=== PATIENT | female | born 1950 | race Hispanic/Latino ===

== ENCOUNTER 2019-05-07 08:52 | Emergency (ER) | payer OTHER, MEDICARE ==
--- OUTSIDE RECORDS SUMMARY | 2019-05-07 08:56 | XMS REPORT ---
:1950 [facility] [address] [place] [address] Dr. Marie [address] [place] [id number] Care Team Providers Name Role Phone JURGEN MORGAN Unavailable Unavailable BRENDA LI Unavailable Unavailable Problems This patient has no known problems. Allergies, Adverse Reactions, Alerts This patient has no known allergies or adverse reactions. Medications This patient has no known medications. Results Test Description Test Time Test Comments Text Results Atomic Results Result Comments MR CARDIAC, 2018-03-10 Reason for exam:->LV FINAL REPORT PATIENT ID: WITHOUT 07:45:00 dysfunction prior [id number] Cardiac MRI dated PCIDiscussed with 09 March 2018 INDICATION: Dr. Soriano to be This is a 67 year-old female done today. with known ischemic heart disease, post revascularisation presents for assessment, due to change in cardiac function. This study is performed in order to quantitate left ventricular function, and to determine myocardial viability and damage. In July 2017, patient have chest pain and ST elevation myocardial infarction. Subsequently, there is angiography was performed, and stage PCI was performed to the LAD and LCx territories. There is also lesion identified in the RCA territory. Scanning blood pressure was 113/57. Patient weighs 122 pounds, with height of 59 inches. Body surface area is approximately 1.52 sq m. TECHNIQUE: Kiana ACHIEVA MRI scanner. Morphologic and dynamic cine imaging were performed in multiple projections before and after contrast administration. Thereafter, gadolinium was administered, which was followed by viability/scar imaging. Finally, flow quantification sequences were performed to determine the degree of valvular dysfunction. Please refer to the contrast sheet scanned in the EPIC system for the amount and route of contrast given. FINDINGS: The chest wall and mediastinum appears unremarkable. The pericardium and pulmonary arteries appear normal; no pericardial effusion is seen in the central pulmonary artery is normal in calibre. Limited imaging through the lungs reveals no gross abnormalities. The cardiac chambers demonstrate normal atrioventricular and ventriculoarterial concordance, and systemic and pulmonary venous return. The thoracic aorta is normal in course, calibre, and contour. There is mild atherosclerosis identified in the descending thoracic aorta. There is no evidence of acute aortic pathology, such as dissection, intramural hematoma, or contained rupture. The left ventricle is normal in size, with moderate systolic dysfunction. The distal two third of the interventricular septum is severely hypokinetic/akinetic. The distal half of the anterior wall is severely hypokinetic. In the long axis orientation, the apex is slightly dyskinetic, involving the entire and infero-apex and erika-apex. Quantitative values are as follows: GCW=637 cc; ESV=95 cc; stroke volume=56 cc; and ejection fraction=37%. Calculated absolute cardiac output=2.6 liters/min. Absolute left ventricular mass=65 grams. By visual estimation, the right ventricle is normal in size and function. Cine imaging and flow quantification reveals mild mitral regurgitation with regurgitant fraction=21%. There is trace to mild tricuspid regurgitation is seen. There is also trace to mild aortic regurgitation. Viability/scar imaging reveals transmural scar in the entire apex. In addition, near transmural to transmural scar is identified in the distal two third of the interventricular septum supplied by the LAD territory, as well as the distal one third of the anterior wall, consistent with the wall motion abnormalities. Ventricular thrombus is not present. Flow curves suggest normal left and right atrial pressures. In the four-chamber orientation, left atrial prominence is identified. CONCLUSIONS: 1. The left ventricle is normal in size with overall moderate systolic dysfunction. Ejection fraction is quantified to be 37%. Segmental wall motion abnormality is as described above, involving the distal two third of the septum, the apex and distal one half the one third of the anterior wall. Quantitative left ventricular functional values are as described above. Viability/scar imaging reveals transmural scar in the entire apex, including the infero-apex. In addition, near transmural to transmural scar is identified in the distal two third of the interventricular septum supplied by the LAD territory, as well as the distal one third of the anterior wall, consistent with the wall motion abnormalities. The above territories are essentially nonviable. Remainder of the left ventricle, specifically, the basal one third of the territory supplied by the LAD, the inferior wall, as well the lateral wall of full-thickness, viable appearing myocardium. 2. Mild mitral regurgitation as well as trace to mild tricuspid regurgitation and aortic regurgitation. 3. Left atrial prominence. 4. Major findings were discussed with Dr. Morgan. Signed: Fahad Sorianoeport Verified Date/Time: 03/10/2018 07:45:11 Reading Location: [place] [address] Cardiology MRI TINE KINASE (CK), TOTAL AND MB 2018-03-10 04:34:00 Test Item Value Reference Range Comments CREATINE KINASE TOTAL (BEAKER) (test kjnt=641) 93 U/L 29-200 CREATINE KINASE-MB (BEAKER) (test uryw=289) 2.1 ng/mL 0.0-6.6 CREATINE KINASE-MB INDEX (BEAKER) (test zwwn=669) 2.3 % CK-MB Reference Range:<6.7 Normal6.7-10.0 Borderline>10.0 AbnormalTROPONIN [id number] 04:34:00 Test Item Value Reference Range Comments TROPONIN I (BEAKER) (test wflx=028) 0.01 ng/mL 0.00-0.03 Troponin I (TnI) levels must be interpreted in the context of the presenting symptoms and the clinical findings. Elevated TnI levels indicate myocardial damage, but are not specific for ischemic heart disease. Elevated TnI levels are seen in patients with other cardiac conditions (including myocarditis and congestive heart failure), and slight TnI elevations occur in patients with other conditions, including sepsis, renal failure, acidosis, acute neurological disease, and persistent tachyarrhythmia.[id number] 04:28:00 Test Item Value Reference Range Comments MAGNESIUM (BEAKER) (test pxbu=338) 2.5 mg/dL 1.6-2.6 BASIC METABOLIC [id number] 04:28:00 Test Item Value Reference Range Comments SODIUM (BEAKER) (test 136 meq/L 136-145 zxtm=061) POTASSIUM (BEAKER) (test 3.9 meq/L 3.5-5.1 lkum=925) CHLORIDE (BEAKER) (test 106 meq/L 98-107 lpje=662) CO2 (BEAKER) (test 20 meq/L 22-29 qttm=616) BLOOD UREA NITROGEN 14 mg/dL 7-21 (BEAKER) (test khnl=551) CREATININE (BEAKER) (test 0.91 mg/dL 0.57-1.25 yaej=506) GLUCOSE RANDOM (BEAKER) 75 mg/dL 70-105 (test ifak=737) CALCIUM (BEAKER) (test 9.3 mg/dL 8.4-10.2 pvzk=687) EGFR (BEAKER) (test 61 mL/min/1.73 sq m ESTIMATED GFR IS NOT qdmu=9719) ACCURATE CREATININE CLEARANCE IN PREDICTING GLOMERULAR FILTRATION RATE. ESTIMATED GFR IS NOT APPLICABLE FOR DIALYSIS PATIENTS. CBC (HEMOGRAM ONLY)2018-03-10 04:07:00 Test Item Value Reference Range Comments WHITE BLOOD CELL COUNT (BEAKER) (test gtng=360) 7.7 K/ L 3.5-10.5 RED BLOOD CELL COUNT (BEAKER) (test yoyb=562) 4.40 M/ L 3.93-5.22 HEMOGLOBIN (BEAKER) (test effh=381) 12.2 GM/DL 11.2-15.7 HEMATOCRIT (BEAKER) (test vscz=442) 39.4 % 34.1-44.9 MEAN CORPUSCULAR VOLUME (BEAKER) (test bgqv=911) 89.5 fL 79.4-94.8 MEAN CORPUSCULAR HEMOGLOBIN (BEAKER) (test 27.7 pg 25.6-32.2 zbrp=517) MEAN CORPUSCULAR HEMOGLOBIN CONC (BEAKER) (test 31.0 GM/DL 32.2-35.5 kpld=769) RED CELL DISTRIBUTION WIDTH (BEAKER) (test 17.2 % 11.7-14.4 srrd=728) PLATELET COUNT (BEAKER) (test mphn=232) 338 K/CU MM 150-450 MEAN PLATELET VOLUME (BEAKER) (test ftcs=247) 9.5 fL 9.4-12.3 NUCLEATED RED BLOOD CELLS (BEAKER) (test 0 /100 WBC 0-0 qjji=127) PROTHROMBIN [id number] 14:03:00 Test Item Value Reference Range Comments PROTIME (BEAKER) (test xehe=081) 13.8 seconds 11.7-14.7 INR (BEAKER) (test dymk=347) 1.1 <=5.9 RECOMMENDED COUMADIN/WARFARIN INR THERAPY RANGESSTANDARD DOSE: 2.0 - 3.0 Includes: PROPHYLAXIS forvenous thrombosis, systemic embolization; TREATMENT for venous thrombosis and/or pulmonary embolus.HIGH RISK: Target INR is 2.5-3.5 for patients with mechanical heart valves.BASIC METABOLIC [id number] 13:59: 00 Test Item Value Reference Range Comments SODIUM (BEAKER) (test 137 meq/L 136-145 zvpr=608) POTASSIUM (BEAKER) (test 3.8 meq/L 3.5-5.1 tonn=448) CHLORIDE (BEAKER) (test 104 meq/L 98-107 shhb=474) CO2 (BEAKER) (test 21 meq/L 22-29 xoqv=485) BLOOD UREA NITROGEN 16 mg/dL 7-21 (BEAKER) (test pwma=557) CREATININE (BEAKER) (test 1.06 mg/dL 0.57-1.25 qqvm=649) GLUCOSE RANDOM (BEAKER) 125 mg/dL 70-105 (test oohh=658) CALCIUM (BEAKER) (test 9.8 mg/dL 8.4-10.2 fbry=295) EGFR (BEAKER) (test 52 mL/min/1.73 sq m ESTIMATED GFR IS NOT mwbf=8738) ACCURATE CREATININE CLEARANCE IN PREDICTING GLOMERULAR FILTRATION RATE. ESTIMATED GFR IS NOT APPLICABLE FOR DIALYSIS PATIENTS. CBC W/PLT COUNT & AUTO [id number] 13:47:00 Test Item Value Reference Range Comments WHITE BLOOD CELL COUNT (BEAKER) (test dwir=353) 11.1 K/ L 3.5-10.5 RED BLOOD CELL COUNT (BEAKER) (test lwcm=437) 4.60 M/ L 3.93-5.22 HEMOGLOBIN (BEAKER) (test rsbr=758) 12.9 GM/DL 11.2-15.7 HEMATOCRIT (BEAKER) (test dsta=154) 41.5 % 34.1-44.9 MEAN CORPUSCULAR VOLUME (BEAKER) (test qylr=094) 90.2 fL 79.4-94.8 MEAN CORPUSCULAR HEMOGLOBIN (BEAKER) (test 28.0 pg 25.6-32.2 ijmq=850) MEAN CORPUSCULAR HEMOGLOBIN CONC (BEAKER) (test 31.1 GM/DL 32.2-35.5 qiin=855) RED CELL DISTRIBUTION WIDTH (BEAKER) (test 17.2 % 11.7-14.4 yfok=744) PLATELET COUNT (BEAKER) (test urqw=256) 347 K/CU MM 150-450 MEAN PLATELET VOLUME (BEAKER) (test nkcx=273) 9.2 fL 9.4-12.3 NUCLEATED RED BLOOD CELLS (BEAKER) (test 0 /100 WBC 0-0 sibj=512) NEUTROPHILS RELATIVE PERCENT (BEAKER) (test 87 % zsye=538) LYMPHOCYTES RELATIVE PERCENT (BEAKER) (test 6 % komp=141) MONOCYTES RELATIVE PERCENT (BEAKER) (test 5 % nfzk=852) EOSINOPHILS RELATIVE PERCENT (BEAKER) (test 0 % igsm=386) BASOPHILS RELATIVE PERCENT (BEAKER) (test 1 % qzmm=829) NEUTROPHILS ABSOLUTE COUNT (BEAKER) (test 9.71 K/ L 1.56-6.13 ymvl=010) LYMPHOCYTES ABSOLUTE COUNT (BEAKER) (test 0.71 K/ L 1.18-3.74 amhz=873) MONOCYTES ABSOLUTE COUNT (BEAKER) (test 0.54 K/ L 0.24-0.36 jkjk=237) EOSINOPHILS ABSOLUTE COUNT (BEAKER) (test 0.05 K/ L 0.04-0.36 baev=855) BASOPHILS ABSOLUTE COUNT (BEAKER) (test 0.06 K/ L 0.01-0.08 ymav=406) IMMATURE GRANULOCYTES-RELATIVE PERCENT (BEAKER) 1 % 0-1 (test cuje=4180) POCT-GLUCOSE [id number] 12:18:00 Test Item Value Reference Range Comments POC-GLUCOSE METER (BEAKER) 137 mg/dL 70-110 TESTED AT [address] (test qrtw=0677) [place] [address] POCT-GLUCOSE [id number] 08:15:00 Test Item Value Reference Range Comments POC-GLUCOSE METER (BEAKER) 134 mg/dL 70-110 TESTED AT [address] (test wjjc=3385) [place] [address] BASIC METABOLIC [id number] 05:26:00 Test Item Value Reference Range Comments SODIUM (BEAKER) (test 138 meq/L 136-145 vxfd=992) POTASSIUM (BEAKER) (test 4.2 meq/L 3.5-5.1 ehul=437) CHLORIDE (BEAKER) (test 106 meq/L 98-107 qyxj=935) CO2 (BEAKER) (test 22 meq/L 22-29 ctji=470) BLOOD UREA NITROGEN 10 mg/dL 7-21 (BEAKER) (test mkld=711) CREATININE (BEAKER) (test 0.78 mg/dL 0.57-1.25 sdfs=705) GLUCOSE RANDOM (BEAKER) 127 mg/dL 70-105 (test ujga=810) CALCIUM (BEAKER) (test 9.2 mg/dL 8.4-10.2 rufc=717) EGFR (BEAKER) (test 73 mL/min/1.73 sq m ESTIMATED GFR IS NOT fsxt=8360) ACCURATE CREATININE CLEARANCE IN PREDICTING GLOMERULAR FILTRATION RATE. ESTIMATED GFR IS NOT APPLICABLE FOR DIALYSIS PATIENTS. CBC (HEMOGRAM ONLY)2017-10-09 04:37:00 Test Item Value Reference Range Comments WHITE BLOOD CELL COUNT (BEAKER) (test gkjn=436) 10.7 K/ L 3.5-10.5 RED BLOOD CELL COUNT (BEAKER) (test jcde=938) 3.87 M/ L 3.93-5.22 HEMOGLOBIN (BEAKER) (test lugj=450) 11.9 GM/DL 11.2-15.7 HEMATOCRIT (BEAKER) (test zjkc=195) 37.9 % 34.1-44.9 MEAN CORPUSCULAR VOLUME (BEAKER) (test zzwx=953) 97.9 fL 79.4-94.8 MEAN CORPUSCULAR HEMOGLOBIN (BEAKER) (test 30.7 pg 25.6-32.2 tctj=952) MEAN CORPUSCULAR HEMOGLOBIN CONC (BEAKER) (test 31.4 GM/DL 32.2-35.5 qplr=970) RED CELL DISTRIBUTION WIDTH (BEAKER) (test 13.6 % 11.7-14.4 ytci=396) PLATELET COUNT (BEAKER) (test wcwe=255) 301 K/CU MM 150-450 MEAN PLATELET VOLUME (BEAKER) (test mlbb=074) 9.7 fL 9.4-12.3 NUCLEATED RED BLOOD CELLS (BEAKER) (test 0 /100 WBC 0-0 wqvr=274) POCT-GLUCOSE [id number] 22:33:00 Test Item Value Reference Range Comments POC-GLUCOSE METER (BEAKER) 131 mg/dL 70-110 TESTED AT [address] (test vgtl=9858) [place] [address] PLATELET AGGREGATION: DRUG [id number] 18:23:00 Test Item Value Reference Range Comments STRONG ADP RESULT(BEAKER) (test 23 % 70-94 nogw=9166) WEAK ADP RESULT(BEAKER) (test 15 % 60-91 gvem=2632) ARACHADONIC ACID RESULT(BEAKER) 4 % 63-89 (test fkil=0417) PLATELET AGG DRUG INTERPRETATION Decreased response to (BEAKER) (test oxpc=8502) arachidonic acid suggests aspirin-like effect. PLATELET AGG DRUG INTERPRETATION Decreased response to ADP (BEAKER) (test gopv=600329) suggest a E1X97-ubpdlhwlt drug effect. [id number] [facility] Juliette Villa MD (test kjey=8459) (electronic signature) PLATELET COUNT AGG (BEAKER) 320 K/CU MM 150-450 (test xijh=3944) [id number] 16:05:00 Test Item Value Reference Range Comments ACTIVATED CLOTTING TIME 285 sec TESTED AT [address] ([facility] (test iiyn=010) [place] [address] [id number] 16:05:00 Test Item Value Reference Range Comments ACTIVATED CLOTTING TIME 230 sec TESTED AT [address] ([facility] (test jnpk=353) [place] [address] [id number] 15:20:00 Test Item Value Reference Range Comments ACTIVATED CLOTTING TIME 197 sec TESTED AT [address] ([facility] (test gqjz=002) [place] [address] [id number] 14:22:00 Test Item Value Reference Range Comments ACTIVATED CLOTTING TIME 301 sec TESTED AT [address] ([facility] (test eakd=353) [place] [address] LIPID [id number] 11:59:00 Test Item Value Reference Range Comments TRIGLYCERIDES (BEAKER) (test uvch=653) 179 mg/dL CHOLESTEROL (BEAKER) (test iwtl=168) 172 mg/dL HDL CHOLESTEROL (BEAKER) (test kspl=358) 63 mg/dL LDL CHOLESTEROL CALCULATED (BEAKER) (test 73 mg/dL arqv=770) Triglyceride Reference Range: Low Risk <150 Borderline 150- 199 High Risk 200-499 Very High Risk >=500Cholesterol Reference Range: Low Risk <200 Borderline 200-239 High Risk > 240HDL Cholesterol Reference Range: Low Risk >=60 High Risk <40LDL Cholesterol Reference Range: Optimal <100 Near Optimal 100-129 Borderline 130-159 High 160-189 Very High >=190COMPREHENSIVE METABOLIC [id number] 11:59:00 Test Item Value Reference Range Comments TOTAL PROTEIN (BEAKER) 7.0 gm/dL 6.0-8.3 (test bdln=648) ALBUMIN (BEAKER) (test 4.2 g/dL 3.5-5.0 moxh=3979) ALKALINE PHOSPHATASE 107 U/L 40-150 (BEAKER) (test asiv=648) BILIRUBIN TOTAL (BEAKER) 0.6 mg/dL 0.2-1.2 (test gmur=343) SODIUM (BEAKER) (test 141 meq/L 136-145 zcxa=507) POTASSIUM (BEAKER) (test 4.4 meq/L 3.5-5.1 rxnb=371) CHLORIDE (BEAKER) (test 108 meq/L 98-107 fjrv=901) CO2 (BEAKER) (test 24 meq/L 22-29 hozu=632) BLOOD UREA NITROGEN 11 mg/dL 7-21 (BEAKER) (test jgik=584) CREATININE (BEAKER) (test 0.83 mg/dL 0.57-1.25 kohy=142) GLUCOSE RANDOM (BEAKER) 158 mg/dL 70-105 (test vwdl=881) CALCIUM (BEAKER) (test 9.6 mg/dL 8.4-10.2 feln=206) AST (SGOT) (BEAKER) (test 33 U/L 5-34 ytxp=518) ALT (SGPT) (BEAKER) (test 38 U/L 6-55 sobp=039) EGFR (BEAKER) (test 68 mL/min/1.73 sq m ESTIMATED GFR IS NOT iwwi=1079) ACCURATE CREATININE CLEARANCE IN PREDICTING GLOMERULAR FILTRATION RATE. ESTIMATED GFR IS NOT APPLICABLE FOR DIALYSIS PATIENTS. CBC (HEMOGRAM ONLY)2017-10-08 11:44:00 Test Item Value Reference Range Comments WHITE BLOOD CELL COUNT (BEAKER) (test ypli=602) 11.2 K/ L 3.5-10.5 RED BLOOD CELL COUNT (BEAKER) (test ypmv=311) 4.13 M/ L 3.93-5.22 HEMOGLOBIN (BEAKER) (test ejhk=596) 12.5 GM/DL 11.2-15.7 HEMATOCRIT (BEAKER) (test dlxk=082) 39.7 % 34.1-44.9 MEAN CORPUSCULAR VOLUME (BEAKER) (test nojk=990) 96.1 fL 79.4-94.8 MEAN CORPUSCULAR HEMOGLOBIN (BEAKER) (test 30.3 pg 25.6-32.2 uwnk=768) MEAN CORPUSCULAR HEMOGLOBIN CONC (BEAKER) (test 31.5 GM/DL 32.2-35.5 pfas=987) RED CELL DISTRIBUTION WIDTH (BEAKER) (test 13.5 % 11.7-14.4 azjy=545) PLATELET COUNT (BEAKER) (test wmkz=242) 312 K/CU MM 150-450 MEAN PLATELET VOLUME (BEAKER) (test iztp=245) 9.6 fL 9.4-12.3 NUCLEATED RED BLOOD CELLS (BEAKER) (test 0 /100 WBC 0-0 rhtx=345) HEPATIC FUNCTION [id number] 10:32:00 Test Item Value Reference Range Comments TOTAL PROTEIN (BEAKER) (test yvwz=651) 6.1 gm/dL 6.0-8.3 ALBUMIN (BEAKER) (test gqey=3374) 3.5 g/dL 3.5-5.0 BILIRUBIN TOTAL (BEAKER) (test ijco=722) 0.6 mg/dL 0.2-1.2 BILIRUBIN DIRECT (BEAKER) (test fyvg=124) 0.2 mg/dL 0.1-0.5 ALKALINE PHOSPHATASE (BEAKER) (test ualk=383) 70 U/L 40-150 AST (SGOT) (BEAKER) (test ihtw=771) 123 U/L 5-34 ALT (SGPT) (BEAKER) (test erbd=548) 40 U/L 6-55 POCT-GLUCOSE [id number] 08:58:00 Test Item Value Reference Range Comments POC-GLUCOSE METER (BEAKER) 144 mg/dL 70-110 TESTED AT [address] (test xjor=2389) [facility] [address] BASIC METABOLIC [id number] 06:12:00 Test Item Value Reference Range Comments SODIUM (BEAKER) (test 140 meq/L 136-145 capp=417) POTASSIUM (BEAKER) (test 4.1 meq/L 3.5-5.1 bsai=622) CHLORIDE (BEAKER) (test 107 meq/L 98-107 ynnc=720) CO2 (BEAKER) (test 23 meq/L 22-29 xcsw=716) BLOOD UREA NITROGEN 11 mg/dL 7-21 (BEAKER) (test xrop=336) CREATININE (BEAKER) (test 0.86 mg/dL 0.57-1.25 tsvt=761) GLUCOSE RANDOM (BEAKER) 121 mg/dL 70-105 (test juuw=311) CALCIUM (BEAKER) (test 8.9 mg/dL 8.4-10.2 fvxf=452) EGFR (BEAKER) (test 66 mL/min/1.73 sq m ESTIMATED GFR IS NOT njpe=5070) ACCURATE CREATININE CLEARANCE IN PREDICTING GLOMERULAR FILTRATION RATE. ESTIMATED GFR IS NOT APPLICABLE FOR DIALYSIS PATIENTS. IRON, TIBC, % SAT. (WITHOUT FERRITIN)2017-08-05 05:53:00 Test Item Value Reference Range Comments IRON (BEAKER) (test ccwi=213) 24 ug/dL 40-160 TOTAL IRON BINDING CAPACITY (BEAKER) (test 281 ug/dL 250-450 lsvx=632) IRON % SATURATION (2) (BEAKER) (test zyzg=5058) 9 % 20-55 CBC W/PLT COUNT & AUTO [id number] 05:16:00 Test Item Value Reference Range Comments WHITE BLOOD CELL COUNT (BEAKER) (test jqzc=556) 11.5 K/ L 3.5-10.5 RED BLOOD CELL COUNT (BEAKER) (test ukwd=710) 2.70 M/ L 3.93-5.22 HEMOGLOBIN (BEAKER) (test sevj=720) 8.5 GM/DL 11.2-15.7 HEMATOCRIT (BEAKER) (test irez=815) 26.6 % 34.1-44.9 MEAN CORPUSCULAR VOLUME (BEAKER) (test rwup=490) 98.5 fL 79.4-94.8 MEAN CORPUSCULAR HEMOGLOBIN (BEAKER) (test 31.5 pg 25.6-32.2 uqmp=879) MEAN CORPUSCULAR HEMOGLOBIN CONC (BEAKER) (test 32.0 GM/DL 32.2-35.5 qrnd=109) RED CELL DISTRIBUTION WIDTH (BEAKER) (test 13.7 % 11.7-14.4 khjg=376) PLATELET COUNT (BEAKER) (test xvta=860) 244 K/CU MM 150-450 MEAN PLATELET VOLUME (BEAKER) (test njtb=759) 9.9 fL 9.4-12.3 NUCLEATED RED BLOOD CELLS (BEAKER) (test 0 /100 WBC 0-0 cwwd=405) NEUTROPHILS RELATIVE PERCENT (BEAKER) (test 69 % ixwm=139) LYMPHOCYTES RELATIVE PERCENT (BEAKER) (test 15 % ginj=528) MONOCYTES RELATIVE PERCENT (BEAKER) (test 14 % jljw=114) EOSINOPHILS RELATIVE PERCENT (BEAKER) (test 1 % uaad=463) BASOPHILS RELATIVE PERCENT (BEAKER) (test 0 % tghu=732) NEUTROPHILS ABSOLUTE COUNT (BEAKER) (test 7.99 K/ L 1.56-6.13 raks=761) LYMPHOCYTES ABSOLUTE COUNT (BEAKER) (test 1.70 K/ L 1.18-3.74 navl=194) MONOCYTES ABSOLUTE COUNT (BEAKER) (test 1.59 K/ L 0.24-0.36 vqta=816) EOSINOPHILS ABSOLUTE COUNT (BEAKER) (test 0.14 K/ L 0.04-0.36 rmpp=593) BASOPHILS ABSOLUTE COUNT (BEAKER) (test 0.02 K/ L 0.01-0.08 veol=391) IMMATURE GRANULOCYTES-RELATIVE PERCENT (BEAKER) 1 % 0-1 (test wmhs=4625) POCT-GLUCOSE [id number] 23:12:00 Test Item Value Reference Range Comments POC-GLUCOSE METER (BEAKER) 212 mg/dL 70-110 TESTED AT [address] (test xrut=5221) [facility] [address] POCT-GLUCOSE [id number] 20:36:00 Test Item Value Reference Range Comments POC-GLUCOSE METER (BEAKER) 129 mg/dL 70-110 TESTED AT [address] (test fzqb=8378) [place] [id number] POCT-GLUCOSE [id number] 18:11:00 Test Item Value Reference Range Comments POC-GLUCOSE METER (BEAKER) 168 mg/dL 70-110 TESTED AT [facility] [address] [facility] (test ljrb=0251) [place] [id number] U/S, ABDOMINAL, [id number] 17:28:00Abdomen limited area? Add comment if clarification is needed.->Right upper quadrantReason for exam:->elevaed liverShould this be performed at the bedside?->YesFINAL REPORT Right upper quadrant abdominal ultrasound, 08/04/2017. History: Elevated liver enzymes. Comparison: None. Discussion: Transverse and longitudinal images of the right upper quadrant of the abdomen were obtained demonstrating a liver of normal size and echogenicity measuring 13.3 cm in length. There is no evidence of a focal hepatic mass. The portal vein is patentwith hepatopetal flow and is within normal limits measuring 8 mm in diameter. The biliary tree is within normal limits with the common bile duct measuring 2 mm in diameter. The gallbladder is surgically absent The right kidney is normal in size and echogenicity without evidence of hydronephrosis, stones, or mass and measures 9.7 cm in length. The pancreatic body and proximal tail are visualized and are normal in appearance. The abdominal aorta is within normal limits. There is no evidence of free fluid. IMPRESSION:Status post cholecystectomy, otherwise, unremarkable ultrasound of the right upper quadrant. Signed: Ra Becerra Verified Date/Time: 08/04/2017 17:28 :35 Reading Location: [address] Ultrasound Reading Room POCT-GLUCOSE [id number] 13:27:00 Test Item Value Reference Range Comments POC-GLUCOSE METER (BEAKER) 212 mg/dL 70-110 TESTED AT [facility] [address] [facility] (test fvfh=7354) [place] [id number] HEMOGLOBIN [id number] 10:43:00 Test Item Value Reference Range Comments HEMOGLOBIN A1C (BEAKER) (test ombp=061) 7.3 % 4.3-6.1 [id number] 06:16:00 Test Item Value Reference Range Comments MAGNESIUM (BEAKER) (test yaub=168) 2.0 mg/dL 1.6-2.6 BASIC METABOLIC [id number] 06:16:00 Test Item Value Reference Range Comments SODIUM (BEAKER) (test 136 meq/L 136-145 rpff=081) POTASSIUM (BEAKER) (test 4.0 meq/L 3.5-5.1 aqha=552) CHLORIDE (BEAKER) (test 106 meq/L 98-107 kghn=381) CO2 (BEAKER) (test 19 meq/L 22-29 xyvr=840) BLOOD UREA NITROGEN 14 mg/dL 7-21 (BEAKER) (test qlcb=383) CREATININE (BEAKER) (test 0.80 mg/dL 0.57-1.25 ywcx=669) GLUCOSE RANDOM (BEAKER) 119 mg/dL 70-105 (test htsy=296) CALCIUM (BEAKER) (test 8.7 mg/dL 8.4-10.2 txuy=222) EGFR (BEAKER) (test 72 mL/min/1.73 sq m ESTIMATED GFR IS NOT vnou=4805) ACCURATE CREATININE CLEARANCE IN PREDICTING GLOMERULAR FILTRATION RATE. ESTIMATED GFR IS NOT APPLICABLE FOR DIALYSIS PATIENTS. HEPATIC FUNCTION [id number] 06:16:00 Test Item Value Reference Range Comments TOTAL PROTEIN (BEAKER) (test izto=417) 6.0 gm/dL 6.0-8.3 ALBUMIN (BEAKER) (test uecu=7210) 3.5 g/dL 3.5-5.0 BILIRUBIN TOTAL (BEAKER) (test siqb=922) 0.8 mg/dL 0.2-1.2 BILIRUBIN DIRECT (BEAKER) (test bcdg=259) 0.3 mg/dL 0.1-0.5 ALKALINE PHOSPHATASE (BEAKER) (test rbko=279) 71 U/L 40-150 AST (SGOT) (BEAKER) (test ttbb=688) 249 U/L 5-34 ALT (SGPT) (BEAKER) (test rvwu=089) 58 U/L 6-55 [id number] 05:33:00 Test Item Value Reference Range Comments THYROID STIMULATING HORMONE (BEAKER) (test 3.20 uIU/mL 0.35-4.94 rplc=415) CBC W/PLT COUNT & AUTO [id number] 04:57:00 Test Item Value Reference Range Comments WHITE BLOOD CELL COUNT (BEAKER) (test cpen=436) 12.9 K/ L 3.5-10.5 RED BLOOD CELL COUNT (BEAKER) (test nzsv=017) 3.03 M/ L 3.93-5.22 HEMOGLOBIN (BEAKER) (test bmuk=161) 9.5 GM/DL 11.2-15.7 HEMATOCRIT (BEAKER) (test rgxp=416) 29.9 % 34.1-44.9 MEAN CORPUSCULAR VOLUME (BEAKER) (test mliy=865) 98.7 fL 79.4-94.8 MEAN CORPUSCULAR HEMOGLOBIN (BEAKER) (test 31.4 pg 25.6-32.2 yspl=005) MEAN CORPUSCULAR HEMOGLOBIN CONC (BEAKER) (test 31.8 GM/DL 32.2-35.5 akdu=255) RED CELL DISTRIBUTION WIDTH (BEAKER) (test 13.5 % 11.7-14.4 bbew=508) PLATELET COUNT (BEAKER) (test atnp=771) 255 K/CU MM 150-450 MEAN PLATELET VOLUME (BEAKER) (test gbon=031) 10.0 fL 9.4-12.3 NUCLEATED RED BLOOD CELLS (BEAKER) (test 0 /100 WBC 0-0 emuj=628) NEUTROPHILS RELATIVE PERCENT (BEAKER) (test 77 % jgzk=440) LYMPHOCYTES RELATIVE PERCENT (BEAKER) (test 10 % cbxc=527) MONOCYTES RELATIVE PERCENT (BEAKER) (test 13 % vrud=671) EOSINOPHILS RELATIVE PERCENT (BEAKER) (test 0 % rvng=726) BASOPHILS RELATIVE PERCENT (BEAKER) (test 0 % ssgx=187) NEUTROPHILS ABSOLUTE COUNT (BEAKER) (test 9.84 K/ L 1.56-6.13 zdju=522) LYMPHOCYTES ABSOLUTE COUNT (BEAKER) (test 1.26 K/ L 1.18-3.74 xxsu=876) MONOCYTES ABSOLUTE COUNT (BEAKER) (test 1.61 K/ L 0.24-0.36 gtts=029) EOSINOPHILS ABSOLUTE COUNT (BEAKER) (test 0.01 K/ L 0.04-0.36 iynt=143) BASOPHILS ABSOLUTE COUNT (BEAKER) (test 0.05 K/ L 0.01-0.08 rsey=307) IMMATURE GRANULOCYTES-RELATIVE PERCENT (BEAKER) 1 % 0-1 (test ehyk=9222) HEMOGLOBIN [id number] 22:39:00 Test Item Value Reference Range Comments HEMOGLOBIN A1C (ISABELLA) (test nglj=816) 7.3 % 4.3-6.1 RAD, ABDOMEN/KUB, 1 VIEW [id number] 16:14:00Reason for exam:->nausea and vomitingShould this be performed at the bedside?->YesFINAL REPORT Abdomen one view supine 08/03/2017 4:14 PM CLINICAL INDICATION: nausea and vomiting COMPARISON: None available IMPRESSION: There is no radiographic evidence for bowelobstruction. There is no remarkable ileus or colonic fecal burden. No abnormal calcifications are seen in the region of the gallbladder or kidneys. There is retained contrast in the urinary bladder. There are no acute-appearing skeletal abnormalities. Signed: Manuel Girard Verified Date/Time: 08/03/2017 16:14:43 Reading Location: [address] Consult Reading Room TROPONIN [id number] 13:06:00 Test Item Value Reference Range Comments TROPONIN I (ISABELLA) (test ojey=364) 268.34 ng/mL 0.00-0.03 Troponin I (TnI) levels must be interpreted in the context of the presenting symptoms and the clinical findings. Elevated TnI levels indicate myocardial damage, but are not specific for ischemic heart disease. Elevated TnI levels are seen in patients with other cardiac conditions (including myocarditis and congestive heart failure), and slight TnI elevations occur in patients with other conditions, including sepsis, renal failure, acidosis, acute neurological disease, and persistent tachyarrhythmia.RAD, CHEST, 1 VIEW, NON [id number] 07:39:00Reason for exam:->shortness of breathShould this be performed at the bedside?->YesFINAL REPORT Chest one view AP 08/03/2017 7:38 AM CLINICAL INDICATION: shortness of breath COMPARISON: None available IMPRESSION: There is bibasilar subsegmental atelectasis. Cardiomediastinal contours are within normal limits. The central pulmonary vasculature is not engorged. Signed: Manuel Girardeport Verified Date/Time: 08/03/2017 07:39 :05 Reading Location: [facility] Radiology Reading Room [id number] 07: 29:00 Test Item Value Reference Range Comments MAGNESIUM (BEAKER) (test nlpl=727) 2.1 mg/dL 1.6-2.6 BASIC METABOLIC [id number] 07:29:00 Test Item Value Reference Range Comments SODIUM (BEAKER) (test 133 meq/L 136-145 lttn=682) POTASSIUM (BEAKER) (test 4.9 meq/L 3.5-5.1 jjfb=132) CHLORIDE (BEAKER) (test 103 meq/L 98-107 jyta=746) CO2 (BEAKER) (test 19 meq/L 22-29 cayo=995) BLOOD UREA NITROGEN 19 mg/dL 7-21 (BEAKER) (test iwfg=414) CREATININE (BEAKER) (test 1.12 mg/dL 0.57-1.25 gofq=484) GLUCOSE RANDOM (BEAKER) 174 mg/dL 70-105 (test kzcg=145) CALCIUM (BEAKER) (test 8.4 mg/dL 8.4-10.2 ncla=373) EGFR (BEAKER) (test 49 mL/min/1.73 sq m ESTIMATED GFR IS NOT wpbi=0826) ACCURATE CREATININE CLEARANCE IN PREDICTING GLOMERULAR FILTRATION RATE. ESTIMATED GFR IS NOT APPLICABLE FOR DIALYSIS PATIENTS. [id number] 06:13:00 Test Item Value Reference Range Comments ACTIVATED CLOTTING TIME 142 sec TESTED AT [facility] [address] [facility] (BEAKER) (test ngkz=866) [place] [address] [id number] 06:13:00 Test Item Value Reference Range Comments ACTIVATED CLOTTING TIME 164 sec TESTED AT [facility] [address] [facility] (BEAKER) (test fluk=050) [place] [address] CBC W/PLT COUNT & AUTO [id number] 05:57:00 Test Item Value Reference Range Comments WHITE BLOOD CELL COUNT (BEAKER) (test osyp=003) 14.4 K/ L 3.5-10.5 RED BLOOD CELL COUNT (BEAKER) (test gsfw=765) 3.52 M/ L 3.93-5.22 HEMOGLOBIN (BEAKER) (test xcye=204) 11.0 GM/DL 11.2-15.7 HEMATOCRIT (BEAKER) (test wbik=878) 34.7 % 34.1-44.9 MEAN CORPUSCULAR VOLUME (BEAKER) (test hwlh=581) 98.6 fL 79.4-94.8 MEAN CORPUSCULAR HEMOGLOBIN (BEAKER) (test 31.3 pg 25.6-32.2 jjtf=308) MEAN CORPUSCULAR HEMOGLOBIN CONC (BEAKER) (test 31.7 GM/DL 32.2-35.5 nnrl=862) RED CELL DISTRIBUTION WIDTH (BEAKER) (test 13.4 % 11.7-14.4 babc=645) PLATELET COUNT (BEAKER) (test eqwp=146) 320 K/CU MM 150-450 MEAN PLATELET VOLUME (BEAKER) (test maro=254) 9.7 fL 9.4-12.3 NUCLEATED RED BLOOD CELLS (BEAKER) (test 0 /100 WBC 0-0 leif=404) NEUTROPHILS RELATIVE PERCENT (BEAKER) (test 78 % cari=200) LYMPHOCYTES RELATIVE PERCENT (BEAKER) (test 9 % kklr=585) MONOCYTES RELATIVE PERCENT (BEAKER) (test 11 % mdzg=681) EOSINOPHILS RELATIVE PERCENT (BEAKER) (test 0 % wkdn=249) BASOPHILS RELATIVE PERCENT (BEAKER) (test 0 % zmah=516) NEUTROPHILS ABSOLUTE COUNT (BEAKER) (test 11.27 K/ L 1.56-6.13 gibt=962) LYMPHOCYTES ABSOLUTE COUNT (BEAKER) (test 1.36 K/ L 1.18-3.74 iakc=057) MONOCYTES ABSOLUTE COUNT (BEAKER) (test 1.60 K/ L 0.24-0.36 xiuk=470) EOSINOPHILS ABSOLUTE COUNT (BEAKER) (test 0.02 K/ L 0.04-0.36 evbf=934) BASOPHILS ABSOLUTE COUNT (BEAKER) (test 0.04 K/ L 0.01-0.08 mvyf=135) IMMATURE GRANULOCYTES-RELATIVE PERCENT (BEAKER) 1 % 0-1 (test wnuz=8912) [id number] 04:14:00 Test Item Value Reference Range Comments ACTIVATED CLOTTING TIME 186 sec TESTED AT [place] [address] SAMI (BEAKER) (test wbrh=371) [facility] [address] TROPONIN [id number] 02:09:00 Test Item Value Reference Range Comments TROPONIN I (BEAKER) (test eipr=830) > ng/mL 0.00-0.03 Troponin I (TnI) levels must be interpreted in the context of the presenting symptoms and the clinical findings. Elevated TnI levels indicate myocardial damage, but are not specific for ischemic heart disease. Elevated TnI levels are seen in patients with other cardiac conditions (including myocarditis and congestive heart failure), and slight TnI elevations occur in patients with other conditions, including sepsis, renal failure, acidosis, acute neurological disease, and persistent tachyarrhythmia.CBC W/PLT COUNT & AUTO [id number] 01:59:00 Test Item Value Reference Range Comments WHITE BLOOD CELL COUNT (BEAKER) (test foem=830) 14.5 K/ L 3.5-10.5 RED BLOOD CELL COUNT (BEAKER) (test mvmm=165) 3.42 M/ L 3.93-5.22 HEMOGLOBIN (BEAKER) (test knae=034) 10.6 GM/DL 11.2-15.7 HEMATOCRIT (BEAKER) (test bnni=282) 33.1 % 34.1-44.9 MEAN CORPUSCULAR VOLUME (BEAKER) (test blce=589) 96.8 fL 79.4-94.8 MEAN CORPUSCULAR HEMOGLOBIN (BEAKER) (test 31.0 pg 25.6-32.2 psiv=018) MEAN CORPUSCULAR HEMOGLOBIN CONC (BEAKER) (test 32.0 GM/DL 32.2-35.5 rrim=960) RED CELL DISTRIBUTION WIDTH (BEAKER) (test 13.1 % 11.7-14.4 xxeq=803) PLATELET COUNT (BEAKER) (test rrfk=727) 266 K/CU MM 150-450 MEAN PLATELET VOLUME (BEAKER) (test gbaz=056) 9.8 fL 9.4-12.3 NUCLEATED RED BLOOD CELLS (BEAKER) (test 0 /100 WBC 0-0 fduc=705) NEUTROPHILS RELATIVE PERCENT (BEAKER) (test 80 % fike=878) LYMPHOCYTES RELATIVE PERCENT (BEAKER) (test 9 % wuiy=534) MONOCYTES RELATIVE PERCENT (BEAKER) (test 10 % cygj=915) EOSINOPHILS RELATIVE PERCENT (BEAKER) (test 0 % twdd=904) BASOPHILS RELATIVE PERCENT (BEAKER) (test 0 % ffrr=467) NEUTROPHILS ABSOLUTE COUNT (BEAKER) (test 11.60 K/ L 1.56-6.13 pene=143) LYMPHOCYTES ABSOLUTE COUNT (BEAKER) (test 1.28 K/ L 1.18-3.74 eiyb=715) MONOCYTES ABSOLUTE COUNT (BEAKER) (test 1.39 K/ L 0.24-0.36 cxcg=369) EOSINOPHILS ABSOLUTE COUNT (BEAKER) (test 0.04 K/ L 0.04-0.36 ralh=152) BASOPHILS ABSOLUTE COUNT (BEAKER) (test 0.05 K/ L 0.01-0.08 mpeu=008) IMMATURE GRANULOCYTES-RELATIVE PERCENT (BEAKER) 1 % 0-1 (test sexd=3270) BASIC METABOLIC [id number] 01:49:00 Test Item Value Reference Range Comments SODIUM (BEAKER) (test 134 meq/L 136-145 fkok=345) POTASSIUM (BEAKER) (test 3.9 meq/L 3.5-5.1 bdep=750) CHLORIDE (BEAKER) (test 104 meq/L 98-107 byoe=383) CO2 (BEAKER) (test 21 meq/L 22-29 qpqf=886) BLOOD UREA NITROGEN 18 mg/dL 7-21 (BEAKER) (test zpgv=971) CREATININE (BEAKER) (test 0.79 mg/dL 0.57-1.25 cyvu=593) GLUCOSE RANDOM (BEAKER) 153 mg/dL 70-105 (test kfcm=653) CALCIUM (BEAKER) (test 7.9 mg/dL 8.4-10.2 bpxi=247) EGFR (BEAKER) (test 73 mL/min/1.73 sq m ESTIMATED GFR IS NOT xvva=2099) ACCURATE CREATININE CLEARANCE IN PREDICTING GLOMERULAR FILTRATION RATE. ESTIMATED GFR IS NOT APPLICABLE FOR DIALYSIS PATIENTS. [id number] 01:22:00 Test Item Value Reference Range Comments MAGNESIUM (BEAKER) (test tebz=589) 2.0 mg/dL 1.6-2.6 LIPID [id number] 01:22:00 Test Item Value Reference Range Comments TRIGLYCERIDES (BEAKER) (test zqjb=708) 115 mg/dL CHOLESTEROL (BEAKER) (test gpes=375) 235 mg/dL HDL CHOLESTEROL (BEAKER) (test damz=564) 55 mg/dL LDL CHOLESTEROL CALCULATED (BEAKER) (test 157 mg/dL dbyx=237) Triglyceride Reference Range: Low Risk <150 Borderline 150- 199 High Risk 200-499 Very High Risk >=500Cholesterol Reference Range: Low Risk <200 Borderline 200-239 High Risk > 240HDL Cholesterol Reference Range: Low Risk >=60 High Risk <40LDL Cholesterol Reference Range: Optimal <100 Near Optimal 100-129 Borderline 130-159 High 160-189 Very High >=190HEPATIC FUNCTION [id number] 01:22:00 Test Item Value Reference Range Comments TOTAL PROTEIN (BEAKER) (test itpe=195) 5.6 gm/dL 6.0-8.3 ALBUMIN (BEAKER) (test eyls=6762) 3.3 g/dL 3.5-5.0 BILIRUBIN TOTAL (BEAKER) (test twwm=161) < mg/dL 0.2-1.2 BILIRUBIN DIRECT (BEAKER) (test aodb=876) 0.1 mg/dL 0.1-0.5 ALKALINE PHOSPHATASE (BEAKER) (test yjji=358) 70 U/L 40-150 AST (SGOT) (BEAKER) (test zafh=588) 212 U/L 5-34 ALT (SGPT) (BEAKER) (test dieh=768) 45 U/L 6-55 [id number] 01:04:00 Test Item Value Reference Range Comments ACTIVATED CLOTTING TIME 274 sec TESTED AT [place] [address] [place] (BEAKER) (test zcmv=068) [place] [id number] 00:30:00 Test Item Value Reference Range Comments ACTIVATED CLOTTING TIME 301 sec TESTED AT [place] [id number] [place] (BEAKER) (test hhmq=719) [place] [id number] 00:12:00 Test Item Value Reference Range Comments ACTIVATED CLOTTING TIME 263 sec TESTED AT [place] [id number] [place] (BEAKER) (test wvhe=207) [place] [address] [id number] 23:55:00 Test Item Value Reference Range Comments ACTIVATED CLOTTING TIME 246 sec TESTED AT [address] ([employer]) (test zkqr=532) [place] [address] [id number] 23:44:00 Test Item Value Reference Range Comments ACTIVATED CLOTTING TIME 153 sec TESTED AT [address] ([employer]) (test mock=739) [place] [address]
[2019-05-07 09:26] LABS: Urine Blood 2+ (NEG); Urine Glucose TRACE (NEG); Urine Protein 2+ (NEG); Urine pH 5.5 (5.0-7.0)
--- NOTE | 2019-05-07 09:31 | ER ---
Nurse's Notes [facility] Name: Humera Anton Age: 68 yrs Sex: Female : 1950 Arrival Date: 05/07/2019 Time: 08:59 Bed 15 Private MD: Katerine Colin H Diagnosis: Cystitis, unspecified without hematuria Presentation: 05/07 09:05 Presenting complaint: Burning with urination and suprapubic pain x 2 days. Reports hb frequent UTIs, was supposed to f/u with Dr. Barrera but has not made appt yet. Transition of care: patient was not received from another setting of care. Onset of symptoms was May 06, 2019. Risk Assessment: Do you want to hurt yourself or someone else? Patient reports no desire to harm self or others. Initial Sepsis Screen: Does the patient meet any 2 criteria? No. Patient's initial sepsis screen is negative. Does the patient have a suspected source of infection? No. Patient's initial sepsis screen is negative. Care prior to arrival: None. 09:05 Method Of Arrival: Ambulatory hb 09:05 Acuity: EDVIN 4 hb Historical: - Allergies: 09:07 No Known Allergies; hb - PMHx: 09:07 Hypertension; Hypothyroidism; Rheumatoid Arthritis; hb - PSHx: 09:07 Cholecystectomy; ; hb - Immunization history:: Adult Immunizations up to date. - Social history:: Smoking status: Patient/guardian denies using tobacco, Patient/guardian denies using alcohol, street drugs, The patient lives with family. - Ebola Screening: : No symptoms or risks identified at this time. - Family history:: not pertinent. Screenin:07 Abuse screen: Denies threats or abuse. Denies injuries from another. Nutritional hb screening: No deficits noted. Tuberculosis screening: No symptoms or risk factors identified. Fall Risk None identified. Assessment: 09:15 General: Appears in no apparent distress. well groomed, well developed, well nourished, sg Behavior is calm, cooperative, appropriate for age. Pain: Denies pain. Neuro: Level of Consciousness is awake, alert, obeys commands, Oriented to person, place, time. Cardiovascular: Capillary refill is brisk in bilateral fingers Patient's skin is warm and dry. Chest pain is denied. Respiratory: Airway is patent Respiratory effort is even, unlabored, Respiratory pattern is regular, symmetrical. GI: No signs and/or symptoms were reported involving the gastrointestinal system. : No signs and/or symptoms were reported regarding the genitourinary system. EENT: No signs and/or symptoms were reported regarding the EENT system. Derm: Skin is pink, warm \T\ dry. Musculoskeletal: Circulation, motion, and sensation intact. Range of motion: intact in all extremities. Vital Signs: 09:07 BP 153 / 81; Pulse 86; Resp 16; Temp 97.4(TE); Pulse Ox 100% on R/A; Weight 55.79 kg; hb Height 4 ft. 11 in. (149.86 cm); Pain 8/10; 09:30 BP 142 / 80; Pulse 80; Resp 17; Pulse Ox 100% on R/A; Pain 6/10; sg 09:07 Body Mass Index 24.84 (55.79 kg, 149.86 cm) hb ED Course: 08:59 Patient arrived in ED. mr 08:59 Katerine Colin DO is Private Physician. mr 09:03 Radha Rojas MD is Attending Physician. ma2 09:06 Triage completed. hb 09:07 Arm band placed on. hb 09:11 Ike Perales, RN is Primary Nurse. sg 09:25 Urine collected: clean catch specimen, AZO [place]. Patient did not have IV access sg during this emergency room visit. 09:30 Patient has correct armband on for positive identification. sg 09:35 No provider procedures requiring assistance completed. sg Administered Medications: 09:39 Drug: LevOfloxacin 750 mg Route: PO; sg 09:39 Drug: Tylenol #3 (300 mg-30 mg) 1 tablet Route: PO; sg Outcome: 09:30 Discharge ordered by . ma2 09:35 Discharged to home ambulatory, with friend. sg 09:35 Condition: good 09:35 Discharge instructions given to patient, Instructed on discharge instructions, follow up and referral plans. medication usage, safety practices, Demonstrated understanding of instructions, follow-up care, Prescriptions given X 2. 09:40 Patient left the ED. sg Addendum: 05/10/2019 07:28 Addendum: Culture Results: Positive urine culture. No further action required. Bacteria s s sensitive to prescribed antibiotic. Signatures: Ike Perales RN RN Law, Janie mr Tammy Patel, RN RN ss Aparna Bowers RN RN Radha Rojas MD MD ma2
--- NOTE | 2019-05-07 09:32 | EDPHYS ---
Physician Documentation [facility] Name: Humera Anton Age: 68 yrs Sex: Female : 1950 Arrival Date: 05/07/2019 Time: 08:59 Bed 15 Private MD: Katerine Colin H ED Physician Radha Rojas HPI: 05/07 09:29 This 68 yrs old Female presents to ER via Ambulatory with complaints of ma2 Urinary Problem. 09:29 Onset: The symptoms/episode began/occurred gradually, 2 day(s) ago. Associated signs ma2 and symptoms: Pertinent negatives: chest pain, dysuria, headache. Severity of pain: At its worst the pain was moderate in the emergency department the pain is unchanged. The patient has experienced similar episodes in the past. Historical: - Allergies: 09:07 No Known Allergies; hb - PMHx: 09:07 Hypertension; Hypothyroidism; Rheumatoid Arthritis; hb - PSHx: 09:07 Cholecystectomy; ; hb - Immunization history:: Adult Immunizations up to date. - Social history:: Smoking status: Patient/guardian denies using tobacco, Patient/guardian denies using alcohol, street drugs, The patient lives with family. - Ebola Screening: : No symptoms or risks identified at this time. - Family history:: not pertinent. ROS: 09:29 Constitutional: Negative for fever, chills, and weight loss. ma2 09:29 All other systems are negative. Exam: 09:29 Constitutional: This is a well developed, well nourished patient who is awake, alert, ma2 and in no acute distress. Chest/axilla: Normal chest wall appearance and motion. Nontender with no deformity. No lesions are appreciated. Cardiovascular: Regular rate and rhythm with a normal S1 and S2. No gallops, murmurs, or rubs. Normal PMI, no JVD. No pulse deficits. Respiratory: Lungs have equal breath sounds bilaterally, clear to auscultation and percussion. No rales, rhonchi or wheezes noted. No increased work of breathing, no retractions or nasal flaring. Abdomen/GI: Soft, non-tender, with normal bowel sounds. No distension or tympany. No guarding or rebound. No evidence of tenderness throughout. Vital Signs: 09:07 BP 153 / 81; Pulse 86; Resp 16; Temp 97.4(TE); Pulse Ox 100% on R/A; Weight 55.79 kg; hb Height 4 ft. 11 in. (149.86 cm); Pain 8/10; 09:30 BP 142 / 80; Pulse 80; Resp 17; Pulse Ox 100% on R/A; Pain 6/10; sg 09:07 Body Mass Index 24.84 (55.79 kg, 149.86 cm) hb MDM: 09:03 Patient medically screened. ma2 09:29 Differential diagnosis: Irritable bowel syndrome, Pyelonephritis, urinary tract ma2 infection. Data reviewed: vital signs, nurses notes. Counseling: I had a detailed discussion with the patient and/or guardian regarding: the historical points, exam findings, and any diagnostic results supporting the discharge/admit diagnosis, the presence of at least one elevated blood pressure reading (>120/80) during this emergency department visit, the need for outpatient follow up. Response to treatment: the patient's symptoms have resolved after treatment. 05/07 09:18 Order name: Urine Microscopic Only eb 05/07 09:22 Order name: Urine Dipstick--Ancillary (enter results); Complete Time: 09:29 eb 05/07 09:08 Order name: Urine Dipstick-Ancillary (obtain specimen); Complete Time: 09:24 ma2 Administered Medications: 09:39 Drug: LevOfloxacin 750 mg Route: PO; sg 09:39 Drug: Tylenol #3 (300 mg-30 mg) 1 tablet Route: PO; sg Disposition: 05/07/19 09:30 Discharged to Home. Impression: Cystitis, unspecified without hematuria. - Condition is Stable. - Discharge Instructions: Urinary Tract Infection, Adult. - Prescriptions for Tylenol- Codeine #3 300-30 mg Oral Tablet - take 2 tablet by ORAL route every 6 hours As needed; 30 tablet. Cipro 500 mg Oral Tablet - take 1.5 tablet by ORAL route every 12 hours for 10 days; 30 tablet. - Medication Reconciliation Form, Thank You Letter, Antibiotic Education, Prescription Opioid Use form. - Follow up: Private Physician; When: Tomorrow; Reason: Continuance of care. Signatures: Dispatcher [employer] EDIke Hernández RN RN Aparna Bowers RN Radha Shelley MD MD ma2 Corrections: (The following items were deleted from the chart) 09:40 09:30 05/07/2019 09:30 Discharged to Home. Impression: Cystitis, unspecified without sg hematuria. Condition is Stable. Forms are Medication Reconciliation Form, Thank You Letter, Antibiotic Education, Prescription Opioid Use. Follow up: Private Physician; When: Tomorrow; Reason: Continuance of care. ma2
[2019-05-07] MEDS ORDERED: levoFLOXacin 750 MG TAB ONE (09:40)
[2019-05-07] MEDS ORDERED: CODEINE 30MG/APAP 300MG TAB ONE (09:40)
[2019-05-07 10:24] LABS: Urine Bacteria >50 /HPF (<20); Urine Culture Reflex Order REFLEXED
[2019-05-07 16:18] VITALS: BP 153/81; TEMP 97.4; O2SAT 100
== END 2019-05-07 09:40 | disposition home or self-care (01) ==
LOC: ER 08:52
DX: N30.90 Cystitis, unspecified without hematuria (principal)
CPT/HCPCS: 81003; 81015; 87077; 87086; 87088; 87186; 99283